=== PATIENT | female | born 1985 | race American Indian/Alaskan Native ===

== ENCOUNTER 2019-09-15 18:06 | Emergency (ER) | payer SELFPAY ==
--- NOTE | 2019-09-15 18:56 | Emergency Department Report ---
Chief Complaint: Nausea/Vomiting/Diarrhea Stated Complaint: DIZZY, VOMITTING - HPI History of Present Illness: 34 y.o. female with no PHMx presents with complaint of nausea and vomiting for the past three days. Patient states that she feels lightheaded. Patient has had no syncope, chest pain, or shortness of breath. patient has had no hematemesis or hematochezia. - Exam Vital Signs: Vital Signs 09/15/19 18:14 Temperature 99.5 F Pulse Rate 105 H Respiratory 18 Rate Blood Pressure 101/66 O2 Sat by Pulse 99 Oximetry Physical Exam: Patient appears dehydrated. Normal bowel sounds Non tender in all four quadrants on abdominal exam. MSE screening note: Focused history and physical exam performed. Due to findings the following was ordered: ED Disposition for MSE Condition: Stable
[2019-09-15] MEDS ORDERED: ONDANSETRON 4 MG ODT TAB PO ONE (18:57)
[2019-09-15 19:20] LABS: Basophils % (Auto) 0.7 % (0.0-1.8); Eosinophils % (Auto) 0.7 % (0.0-4.3); Hematocrit 37.9 % (30.3-42.9); Hemoglobin 12.8 gm/dl (10.1-14.3); Lymphocytes # (Auto) 0.8 K/mm3 (1.2-5.4); Lymphocytes % (Auto) 20.2 % (13.4-35.0); Mean Corpuscular HGB Conc 34 % (30-34); Mean Corpuscular Volume 90 fl (79-97); Monocytes # (Auto) 0.6 K/mm3 (0.0-0.8); Monocytes % (Auto) 14.8 % (0.0-7.3); Platelet Count 217 K/mm3 (140-440); Red Blood Count 4.22 M/mm3 (3.65-5.03); Red Cell Distribution Width 12.2 % (13.2-15.2)
[2019-09-15 19:42] LABS: Alanine Aminotransferase 7 units/L (7-56); Albumin 4.3 g/dL (3.9-5); BUN/Creatinine Ratio 10; Blood Urea Nitrogen 5 mg/dL (7-17); Calcium 9.7 mg/dL (8.4-10.2); Hemolysis Index 3
[2019-09-15] MEDS ORDERED: ONDANSETRON 4 MG/2 ML INJ ONE (20:54)
[2019-09-15] MEDS ORDERED: SODIUM CHLORIDE 0.9% 1000 ML 1,000 ML ONE (20:55)
[2019-09-15 20:56] LABS: Bacteria,Urine 1+ /HPF (Negative); Bilirubin,Urine NEG (Negative); Blood,Urine SM (Negative); Color,Urine Yellow (Yellow); HCG Qualitative,Urine Negative (Negative); Mucus,Urine 3+ /HPF; Urobilinogen,Urine < 2.0 mg/dL (<2.0)
[2019-09-15] MEDS: SODIUM CHLORIDE 0.9% 1000 ML 1,000 ML IV ONE ×2 (21:02→21:25)
[2019-09-15] MEDS: ONDANSETRON 4 MG/2 ML INJ IV ONE ×2 (21:03→21:25)
[2019-09-15] MEDS ORDERED: ONDANSETRON 4 MG/2 ML INJ IV ONE (21:23)
[2019-09-15] MEDS ORDERED: SODIUM CHLORIDE 0.9% 1000 ML 1,000 ML IV ONE ×2 (21:23→22:14)
--- NOTE | 2019-09-15 21:28 | Emergency Department Report ---
ED General Adult HPI - General Chief complaint: Nausea/Vomiting/Diarrhea Stated complaint: DIZZY, VOMITTING Time Seen by Provider: 09/15/19 20:23 Source: patient Mode of arrival: Ambulatory Limitations: No Limitations - History of Present Illness Initial comments: 34 y.o. female with no PHMx presents with complaint of nausea and vomiting for the past three days. Patient states that she feels lightheaded. Patient has had no syncope, chest pain, or shortness of breath. patient has had no hematemesis or hematochezia. Patient reports she is concerned for possible . Patient denies any past medical history currently takes no medications on a daily basis. Last menstrual period was sometime in July. Patient is 3 para 3 vaginal deliveries. Patient denies any fever. Denies any back pain. - Related Data Previous Rx's Medication Instructions Recorded Last Taken Type Nitrofurantoin [place]/M-Cryst 100 mg PO Q12HR 7 Days #14 capsule 09/15/19 Unknown Rx [Macrobid CAP] Ondansetron [Zofran Odt] 4 mg PO Q8HR PRN #12 tab.rapdis 09/15/19 Unknown Rx Allergies Allergy/AdvReac Type Severity Reaction Status Date / Time No Known Allergies Allergy Verified 09/15/19 20:55 ED Review of Systems ROS: Stated complaint: DIZZY, VOMITTING Other details as noted in HPI ED Past Medical Hx - Past Medical History Previous Medical History?: Yes Additional medical history: Vaginal delivery x 3 - Surgical History Past Surgical History?: No - Social History Smoking Status: Former Smoker Substance Use Type: Alcohol, Marijuana - Medications Home Medications: Home Medications Medication Instructions Recorded Confirmed Last Taken Type Nitrofurantoin [place]/M-Cryst 100 mg PO Q12HR 7 Days #14 capsule 09/15/19 Unknown Rx [Macrobid CAP] Ondansetron [Zofran Odt] 4 mg PO Q8HR PRN #12 tab.rapdis 09/15/19 Unknown Rx ED Physical Exam - General Limitations: No Limitations General appearance: alert, in no apparent distress - Head Head exam: Present: atraumatic, normocephalic - Eye Eye exam: Present: normal appearance, PERRL - ENT ENT exam: Present: mucous membranes moist - Respiratory Respiratory exam: Present: normal lung sounds bilaterally. Absent: respiratory distress - Cardiovascular Cardiovascular Exam: Present: normal rhythm, tachycardia. Absent: systolic murmur, diastolic murmur, rubs, gallop - GI/Abdominal GI/Abdominal exam: Present: soft, normal bowel sounds - Expanded Neurological Exam Expanded Patient oriented to: Present: person, place, time Cranial nerves: EOM's Intact: Normal, Gag Reflex: Normal, Tongue Deviation: N ormal, Nystagmus: Normal, Facial Sensation: Normal, Facial Palsy with Forehead Movement: Normal, Facial Palsy without Forehead Movement: Normal Cerebellar function: Finger to Nose: Normal, Heel to Morgan: Normal, Romberg: Normal Upper motor neuron: Mervin Neglect: Normal, Pronator Drift: Normal, Sensory Extinction: Normal Sensory exam: Upper Extremity Light Touch: Normal, Upper Extremity Pin Prick: Normal, Upper Extremity Temperature: Normal, UE 2 Point Discrimination: Normal, Lower Extremity Light Touch: Normal, Lower Extremity Pin Prick: Normal, Lower Extremity Temperature: Normal, LE 2 Point Discrimination: Normal Motor strength exam: RUE: 4, LUE: 4, RLE: 4, LLE: 4 Best Eye Response ([place]): (4) open spontaneously Best Motor Response ([place]): (6) obeys commands Best Verbal Response ([place]): (5) oriented [place] Total: 15 - Psychiatric Psychiatric exam: Present: normal affect, normal mood - Skin Skin exam: Present: warm, dry, intact, normal color. Absent: rash ED Course Vital Signs 09/15/19 18:14 Temperature 99.5 F Pulse Rate 105 H Respiratory 18 Rate Blood Pressure 101/66 O2 Sat by Pulse 99 Oximetry ED Medical Decision Making - Lab Data Result diagrams: 09/15/19 19:01 09/15/19 19:01 - Medical Decision Making 34 y.o. female with no PHMx presents with complaint of nausea and vomiting for the past three days. Patient states that she feels lightheaded. Patient has had no syncope, chest pain, or shortness of breath. patient has had no hematemesis or hematochezia. Patient reports she is concerned for possible . Patient denies any past medical history currently takes no medications on a daily basis. Last menstrual period was sometime in July. Patient is 3 para 3 vaginal deliveries. Patient denies any fever. Denies any back pain. UA is positive for urinary tract infection with 25 WBCs ketones are positive at 80. Patient appears to be dehydrated which she will get 1 L of fluids Zofran. Patient will be treated for urinary tract infection will be placed on Macrobid 100 mg p.o. twice daily for 10 days. Encouragement of increased fluid advance her diet as tolerated and to follow-up with an [facility] [facility]. Critical care attestation.: If time is entered above; I have spent that time in minutes in the direct care of this critically ill patient, excluding procedure time. ED Disposition Clinical Impression: UTI (urinary tract infection), Dehydration, Nausea & vomiting, Dizziness on standing Disposition: DC-01 TO HOME OR SELFCARE Is pt being admited?: No Does the pt Need Aspirin: No Condition: Stable Instructions: Urinary Tract Infection in Women (ED), Dehydration (ED), Acute Nausea and Vomiting (ED) Additional Instructions: Negative test. Increase your fluid intake advance her diet as tolerated follow-up with your primary care provider if your symptoms persist or gets worse. Prescriptions: Nitrofurantoin [place]/M-Cryst [Macrobid CAP] 100 mg PO Q12HR 7 Days #14 capsule Ondansetron [Zofran Odt] 4 mg PO Q8HR PRN #12 tab.rapdis PRN Reason: Nausea And Vomiting Referrals: PRIMARY CARE, [Primary Care Provider] - 3-5 Days [facility] [Provider Group] - 3-5 Days
[2019-09-15 23:37] VITALS: BP 102/60
== END 2019-09-15 23:55 | disposition home or self-care (01) ==
LOC: ED 18:06
DX: N39.0 Urinary tract infection, site not specified (principal); E86.0 Dehydration; F12.10 Cannabis abuse, uncomplicated; Z87.891 Personal history of nicotine dependence; Z79.899 Other long term (current) drug therapy
CPT/HCPCS: 36415; 80053; 81001; 81025; 83690; 85025; 87086; 96361; 96374; 99283; J2405; J7030; Q0162

== ENCOUNTER 2021-03-10 09:29 | Emergency (ER) | payer SELFPAY ==
[2021-03-10 12:53] VITALS: BP 107/70
[2021-03-10] MEDS ORDERED: ACETAMINOPHEN 325 MG TAB PO ONE (12:55)
--- NOTE | 2021-03-10 13:09 | Emergency Department Report ---
ED ENT HPI - General Chief complaint: Sore Throat Stated complaint: CHILLS/SORE THROAT Time Seen by Provider: 03/10/21 12:52 Source: patient Mode of arrival: Ambulatory Limitations: No Limitations - History of Present Illness Initial comments: Patient is a 35-year-old female presents emergency room complaints of a sore throat that began yesterday. She has associated chills and pain with swallowing. She states that she is able to tolerate p.o. intake but it is painful when she swallows. She denies any known sick contacts. She denies any recent travel. She denies any cough, shortness of breath, vomiting, diarrhea. No past medical history. No allergies to medications. - Related Data Previous Rx's Medication Instructions Recorded Last Taken Type Nitrofurantoin [place]/M-Cryst 100 mg PO Q12HR 7 Days #14 capsule 09/15/19 Unknown Rx [Macrobid CAP] Ondansetron [Zofran Odt] 4 mg PO Q8HR PRN #12 tab.rapdis 09/15/19 Unknown Rx Amoxicillin [Trimox] 500 mg PO BID 10 Days #40 capsule 03/10/21 Unknown Rx Allergies Allergy/AdvReac Type Severity Reaction Status Date / Time No Known Allergies Allergy Verified 09/15/19 20:55 ED Dental HPI - General Chief complaint: Sore Throat Stated complaint: CHILLS/SORE THROAT Time Seen by Provider: 03/10/21 12:52 Source: patient Mode of arrival: Ambulatory Limitations: No Limitations - Related Data Previous Rx's Medication Instructions Recorded Last Taken Type Nitrofurantoin [place]/M-Cryst 100 mg PO Q12HR 7 Days #14 capsule 09/15/19 Unknown Rx [Macrobid CAP] Ondansetron [Zofran Odt] 4 mg PO Q8HR PRN #12 tab.rapdis 09/15/19 Unknown Rx Amoxicillin [Trimox] 500 mg PO BID 10 Days #40 capsule 03/10/21 Unknown Rx Allergies Allergy/AdvReac Type Severity Reaction Status Date / Time No Known Allergies Allergy Verified 09/15/19 20:55 ED Review of Systems ROS: Stated complaint: CHILLS/SORE THROAT Other details as noted in HPI Comment: All other systems reviewed and negative ED Past Medical Hx - Past Medical History Previous Medical History?: Yes Additional medical history: Vaginal delivery x 3 - Surgical History Past Surgical History?: No - Social History Smoking Status: Former Smoker Substance Use Type: Alcohol, Marijuana - Medications Home Medications: Home Medications Medication Instructions Recorded Confirmed Last Taken Type Nitrofurantoin [place]/M-Cryst 100 mg PO Q12HR 7 Days #14 capsule 09/15/19 Unknown Rx [Macrobid CAP] Ondansetron [Zofran Odt] 4 mg PO Q8HR PRN #12 tab.rapdis 09/15/19 Unknown Rx Amoxicillin [Trimox] 500 mg PO BID 10 Days #40 capsule 03/10/21 Unknown Rx ED Physical Exam - General Limitations: No Limitations General appearance: alert, in no apparent distress - Head Head exam: Present: atraumatic, normocephalic - Eye Eye exam: Present: normal appearance - ENT ENT exam: Present: mucous membranes moist, TM's normal bilaterally, normal external ear exam, other (posterior oropharynx is erythematous with exudates present, no obvious tonsillar hypertrophy, uvula is midline, no uvular edema or deviation, no trismus, no tongue elevation, no muffled voice) - Respiratory Respiratory exam: Present: normal lung sounds bilaterally. Absent: respiratory distress, wheezes, rales, rhonchi, stridor, chest wall tenderness, accessory muscle use, decreased breath sounds, prolonged expiratory - Cardiovascular Cardiovascular Exam: Present: normal rhythm, tachycardia, normal heart sounds. Absent: systolic murmur, diastolic murmur, rubs, gallop - Neurological Exam Neurological exam: Present: alert, oriented X3 - Psychiatric Psychiatric exam: Present: normal affect, normal mood - Skin Skin exam: Present: warm, dry, intact ED Course Vital Signs 03/10/21 03/10/21 09:57 13:35 Temperature 99.2 F Pulse Rate 122 H 115 H Respiratory 16 16 Rate Blood Pressure 107/70 O2 Sat by Pulse 95 98 Oximetry ED Medical Decision Making - Lab Data Vital Signs 03/10/21 03/10/21 09:57 13:35 Temperature 99.2 F Pulse Rate 122 H 115 H Respiratory 16 16 Rate Blood Pressure 107/70 O2 Sat by Pulse 95 98 Oximetry - Medical Decision Making Patient is a 35-year-old female presents emergency room complaints of a sore throat that began yesterday. She has associated chills and pain with swallowing. She states that she is able to tolerate p.o. intake but it is painful when she swallows. She denies any known sick contacts. She denies any recent travel. She denies any cough, shortness of breath, vomiting, diarrhea. No past medical history. No allergies to medications. Vitals with tachycardia, patient given Tylenol, tachycardia could likely be related to patient's pharyngitis infection, no signs of murmur on exam, appears to have regular rhythm on auscultation. on exam: posterior oropharynx is erythematous with exudates present, no obvious tonsillar hypertrophy, uvula is midline, no uvular edema or deviation, no trismus, no tongue elevation, no muffled voice. Examinati on appears most consistent with pharyngitis, no signs of peritonsillar abscess at this time. Patient tolerating p.o. intake without any difficulty and was able to swallow Tylenol with no problems. Given prescription for medication. Advised patient Please take medication as prescribed. Increase your fluid intake. May alternate Tylenol or ibuprofen as needed for discomfort. May gargle with warm salt water. Use throat lozenges. Throw away your toothbrush. Do not drink after others or allow others to drink after you. Follow-up with your primary care doctor. Return to emergency room for any new or worsening symptoms. Critical care attestation.: If time is entered above; I have spent that time in minutes in the direct care of this critically ill patient, excluding procedure time. ED Disposition Clinical Impression: Pharyngitis Qualifiers: Pharyngitis/tonsillitis etiology: unspecified etiology Qualified Code(s): J02.9 - Acute pharyngitis, unspecified Disposition: TO HOME OR SELFCARE Is pt being admited?: No Does the pt Need Aspirin: No Condition: Stable Instructions: Pharyngitis, [id number] Additional Instructions: Please take medication as prescribed. Increase your fluid intake. May alternate Tylenol or ibuprofen as needed for discomfort. May gargle with warm salt water. Use throat lozenges. Throw away your toothbrush. Do not drink after others or allow others to drink after you. Follow-up with your primary care doctor. Return to emergency room for any new or worsening symptoms. Prescriptions: Amoxicillin [Trimox] 500 mg PO BID 10 Days #40 capsule Referrals: PRIMARY CARE, [Primary Care Provider] - 2-3 Days Time of Disposition: 13:14 Print Language: MOHAWK
== END 2021-03-10 13:34 | disposition home or self-care (01) ==
LOC: ED 09:29
DX: J02.9 Acute pharyngitis, unspecified (principal); F12.90 Cannabis use, unspecified, uncomplicated; Z79.899 Other long term (current) drug therapy; Z87.891 Personal history of nicotine dependence
CPT/HCPCS: 99282

== ENCOUNTER 2021-03-18 19:21 | Observation (INO) | payer OTHER, SELFPAY ==
[2021-03-18] MEDS ORDERED: ACETAMINOPHEN 325 MG/10.15 ML ORAL LIQD UNIT DOSE ONE (22:56)
[2021-03-18] MEDS ORDERED: IBUPROFEN ORAL LIQD 100 MG/5 ML ORAL.LIQD ONE (22:57)
[2021-03-18] MEDS ORDERED: IBUPROFEN ORAL LIQD 100 MG/5 ML ORAL.LIQD PO ONE (23:05)
[2021-03-18] MEDS ORDERED: ACETAMINOPHEN 325 MG/10.15 ML ORAL LIQD UNIT DOSE PO ONE (23:07)
[2021-03-18] MEDS ORDERED: SODIUM CHLORIDE 0.9% 1000 ML 1,000 ML IV ONE (23:28)
[2021-03-18] MEDS ORDERED: dexAMETHasone 20 MG/5 ML VIAL IV ONE (23:28)
--- NOTE | 2021-03-18 23:37 | Emergency Department Report ---
ED General Adult HPI - General Chief complaint: Fever Stated complaint: HEADACHE/BODY ACHES/FEVER Time Seen by Provider: 03/18/21 23:22 Source: patient Mode of arrival: Ambulatory Limitations: No Limitations - History of Present Illness Severity scale (0 -10): 4 - Related Data Previous Rx's Medication Instructions Recorded Last Taken Type Nitrofurantoin [place]/M-Cryst 100 mg PO Q12HR 7 Days #14 capsule 09/15/19 Unknown Rx [Macrobid CAP] Ondansetron [Zofran Odt] 4 mg PO Q8HR PRN #12 tab.rapdis 09/15/19 Unknown Rx Amoxicillin [Trimox] 500 mg PO BID 10 Days #40 capsule 03/10/21 Unknown Rx Allergies Allergy/AdvReac Type Severity Reaction Status Date / Time No Known Allergies Allergy Verified 09/15/19 20:55 ED Review of Systems ROS: Stated complaint: HEADACHE/BODY ACHES/FEVER Other details as noted in HPI ED Past Medical Hx - Past Medical History Previous Medical History?: No Additional medical history: Vaginal delivery x 3 - Surgical History Past Surgical History?: No - Social History Smoking Status: Current Every Day Smoker Substance Use Type: None - Medications Home Medications: Home Medications Medication Instructions Recorded Confirmed Last Taken Type Nitrofurantoin [place]/M-Cryst 100 mg PO Q12HR 7 Days #14 capsule 09/15/19 Unknown Rx [Macrobid CAP] Ondansetron [Zofran Odt] 4 mg PO Q8HR PRN #12 tab.rapdis 09/15/19 Unknown Rx Amoxicillin [Trimox] 500 mg PO BID 10 Days #40 capsule 03/10/21 Unknown Rx ED Physical Exam - General Limitations: No Limitations ED Course Vital Signs 03/18/21 22:53 Temperature 102.3 F H Pulse Rate 89 Respiratory 20 Rate Blood Pressure 113/68 O2 Sat by Pulse 95 Oximetry Critical care attestation.: If time is entered above; I have spent that time in minutes in the direct care of this critically ill patient, excluding procedure time. ED Disposition Condition: Stable
[2021-03-18] MEDS ORDERED: cefTRIAXone/NS 2 GM/100 ML 2 GM/100 ML BAG IV ONE (23:55)
[2021-03-18] MEDS ORDERED: AZITHROMYCIN/NS 500 MG/250 ML 500 MG/250 ML BAG IV ONE (23:55)
--- NOTE | 2021-03-18 23:56 | Emergency Department Report ---
ED Fever HPI - General Chief Complaint: Fever Stated Complaint: HEADACHE/BODY ACHES/FEVER PUI?: Yes Time Seen by Provider: 03/18/21 23:22 Source: patient Exam Limitations: no limitations - History of Present Illness Initial Comments: Patient is a 35-year-old female that presents emergency room with complaints of fever, cough, body aches, dizziness, near syncope. Patient states her symptoms started 2 days ago. Patient dates her symptoms are worsening. Patient states she is not helping vaccinated for COVID-19. Patient states that she has tried Tylenol and Motrin and she gets temporary relief. Patient states she smokes. Patient denies chest pain. Patient complains of shortness of breath. Patient states her shortness of breath better with rest and worse with exertion. Timing/Duration: yesterday Fever Severity/Quality: greater than 102 F Fever Therapy FUR LINER: Ibuprofen, Tylenol Associated Symptoms: cough, headache, muscle aches, other (Dizziness and near syncope) ED Review of Systems ROS: Stated complaint: HEADACHE/BODY ACHES/FEVER Other details as noted in HPI Constitutional: see HPI, chills, fever, malaise Eyes: denies: eye pain, eye discharge, vision change ENT: denies: ear pain, throat pain Respiratory: see HPI, cough. denies: shortness of breath, wheezing Cardiovascular: denies: chest pain, palpitations Endocrine: no symptoms reported Gastrointestinal: denies: abdominal pain, nausea, diarrhea Genitourinary: denies: urgency, dysuria, discharge Musculoskeletal: denies: back pain, joint swelling, arthralgia Skin: denies: rash, lesions Neurological: as per HPI, headache. denies: weakness, paresthesias Psychiatric: denies: anxiety, depression Hematological/Lymphatic: denies: easy bleeding, easy bruising ED Past Medical Hx - Past Medical History Previous Medical History?: Yes Additional medical history: Vaginal delivery x 3 - Surgical History Past Surgical History?: No - Family History Family history: no significant - Social History Smoking Status: Current Every Day Smoker Substance Use Type: None - Medications Home Medications: Home Medications Medication Instructions Recorded Confirmed Last Taken Type Nitrofurantoin [place]/M-Cryst 100 mg PO Q12HR 7 Days #14 capsule 09/15/19 Unknown Rx [Macrobid CAP] Ondansetron [Zofran Odt] 4 mg PO Q8HR PRN #12 tab.rapdis 09/15/19 Unknown Rx Amoxicillin [Trimox] 500 mg PO BID 10 Days #40 capsule 03/10/21 Unknown Rx ED Physical Exam - General Limitations: No Limitations General appearance: alert, in no apparent distress - Head Head exam: Present: atraumatic, normocephalic - Eye Eye exam: Present: normal appearance - ENT ENT exam: Present: mucous membranes moist - Neck Neck exam: Present: normal inspection - Respiratory Respiratory exam: Present: normal lung sounds bilaterally. Absent: respiratory distress - Cardiovascular Cardiovascular Exam: Present: regular rate, normal rhythm. Absent: systolic murmur, diastolic murmur, rubs, gallop - GI/Abdominal GI/Abdominal exam: Present: soft, normal bowel sounds - Extremities Exam Extremities exam: Present: normal inspection - Back Exam Back exam: Present: normal inspection - Neurological Exam Neurological exam: Present: alert, oriented X3 - Psychiatric Psychiatric exam: Present: normal affect, normal mood - Skin Skin exam: Present: warm, dry, intact, normal color. Absent: rash ED Course Vital Signs 03/18/21 03/18/21 03/18/21 22:53 23:06 23:15 Temperature 102.3 F H Pulse Rate 89 94 H 92 H Respiratory 20 11 L 26 H Rate Blood Pressure 113/68 122/66 O2 Sat by Pulse 95 95 Oximetry 03/18/21 03/18/21 03/19/21 23:31 23:45 00:01 Temperature Pulse Rate 84 89 87 Respiratory 26 H 27 H 24 Rate Blood Pressure 122/66 111/56 102/59 O2 Sat by Pulse 96 95 95 Oximetry 03/19/21 03/19/21 03/19/21 00:15 00:31 00:49 Temperature Pulse Rate 87 84 84 Respiratory 23 21 19 Rate Blood Pressure 104/59 114/63 107/68 O2 Sat by Pulse 97 97 98 Oximetry 03/19/21 01:01 Temperature Pulse Rate 92 H Respiratory 16 Rate Blood Pressure 109/39 O2 Sat by Pulse 99 Oximetry - Reevaluation(s) Reevaluation #1: Patient ambulated in her room and her oxygen saturation dropped to 88%. 03/18/21 23:55 ED Medical Decision Making - Lab Data Result diagrams: 03/18/21 23:38 03/18/21 23:51 - Radiology Data Radiology results: report reviewed, image reviewed interpreted by me: Chest x-ray: No pneumonia, no pneumothorax, no foreign body, no osseous findings, no acute findings CHEST 2 VIEWS INDICATION / CLINICAL INFORMATION: fever. COMPARISON: None available. FINDINGS: SUPPORT DEVICES: None. HEART / MEDIASTINUM: No significant abnormality. LUNGS / PLEURA: No significant pulmonary or pleural abnormality. No pneumothorax. ADDITIONAL FINDINGS: No significant additional findings. IMPRESSION: 1. No acute findings. CTA CHEST WITH IV CONTRAST INDICATION: Shortness of breath, Hypoxia and fever.. TECHNIQUE: Axial CT images were obtained through the chest after injection of 100 cc IV contrast. 3 plane MIP reconstructions were produced. All CT scans at this location are performed using CT dose reduction for ALARA by means of automated exposure control. COMPARISON: None available. FINDINGS: PULMONARY ARTERIES: No pulmonary emboli. THORACIC AORTA: No acute abnormality. HEART: Normal. CORONARY ARTERIES: No significant calcification. PLEURA: No pleural effusion. No pneumothorax. LYMPH NODES: No significant adenopathy. LUNGS: No acute air space or interstitial disease. ADDITIONAL FINDINGS: None. UPPER ABDOMEN: No acute findings. SKELETAL STRUCTURES: No significant osseous abnormality. IMPRESSION: 1. No CT evidence for pulmonary embolism. 2. No acute findings. - Medical Decision Making Patient is a 35-year-old female who presents emergency room with complaints of fever, cough, shortness of breath: Headache, fatigue, body aches. Patient is not vaccinated for COVID-19. Patient after initial evaluation was ambulated with a pulse ox and the patient desaturated. Patient's oxygen level dropped to 88%. Patient was placed on 2 L of oxygen. Patient was given Zithromax, Rocephin and Decadron. Patient was found to have a high fever and the patient was given Motrin and Tylenol. Patient had labs done. Patient's labs were essentially markable except for some elevated inflammatory markers and hyponatremia and hypokalemia. Patient given IV fluids in ER.. Patient had a Covid panel done. Patient had a chest x-ray was negative for acute finding. Personally reviewed the chest x-ray. Patient had a CTA of the chest since patient was hypoxic and short of breath with fever. Patient CTA was negative for acute findings. Patient clinical findings are concerning for respiratory failure and hypoxia and COVID-19. Patient admitted to the hospital service for further evaluation treatment. Critical care time documented due to the multiple reassessments, prolonged time at the bedside, interpretation of diagnostics and labs. - Differential Diagnosis Covid, PUI, fever, shortness of breath, dizziness, Critical Care Time: Yes Critical care time in (mins) excluding proc time.: 35 Critical care attestation.: If time is entered above; I have spent that time in minutes in the direct care of this critically ill patient, excluding procedure time. Critical Care Time: 35 minutes ED Disposition Clinical Impression: Cough, Person under investigation for COVID-19, SOB (shortness of breath) Fever Qualifiers: Fever type: unspecified Qualified Code(s): R50.9 - Fever, unspecified Respiratory failure Qualifiers: Chronicity: acute Respiratory failure complication: hypoxia Qualified Code(s): J96.01 - Acute respiratory failure with hypoxia Disposition: ADMITTED INPATIENT Is pt being admited?: Yes Does the pt Need Aspirin: No Condition: Critical Time of Disposition: 02:37
[2021-03-19 00:08] LABS: Basophils % (Auto) 0.5 % (0.0-1.8); Eosinophils % (Auto) 0.1 % (0.0-4.3); Hematocrit 32.2 % (30.3-42.9); Hemoglobin 11.1 gm/dl (10.1-14.3); Lymphocytes # (Auto) 0.7 K/mm3 (1.2-5.4); Lymphocytes % (Auto) 14.4 % (13.4-35.0); Mean Corpuscular HGB Conc 34 % (30-34); Mean Corpuscular Volume 90 fl (79-97); Monocytes # (Auto) 0.7 K/mm3 (0.0-0.8); Monocytes % (Auto) 13.9 % (0.0-7.3); Platelet Count 247 K/mm3 (140-440); Red Blood Count 3.56 M/mm3 (3.65-5.03); Red Cell Distribution Width 12.8 % (13.2-15.2)
[2021-03-19 00:28] LABS: Alanine Aminotransferase 21 units/L (7-56); Albumin 3.9 g/dL (3.9-5); Blood Urea Nitrogen 7 mg/dL (7-17); Calcium 8.8 mg/dL (8.4-10.2); Hemolysis Index 9
[2021-03-19 00:41] LABS: BUN/Creatinine Ratio 10
[2021-03-19 01:12] VITALS: BP 109/39
--- NOTE | 2021-03-19 01:17 | XRay Report ---
CHEST 2 VIEWS INDICATION / CLINICAL INFORMATION: fever. COMPARISON: None available. FINDINGS: SUPPORT DEVICES: None. HEART / MEDIASTINUM: No significant abnormality. LUNGS / PLEURA: No significant pulmonary or pleural abnormality. No pneumothorax. ADDITIONAL FINDINGS: No significant additional findings. IMPRESSION: 1. No acute findings. Signer Name: Favian Martinez MD Signed: 03/19/2021 1:12 AM Workstation Name: [place] Self Representation Document [id number]
[2021-03-19 01:20] LABS: C-Reactive Protein 1.4 mg/dL (0.00-1.30)
--- NOTE | 2021-03-19 02:24 | Cat Scan Report ---
CTA CHEST WITH IV CONTRAST INDICATION: Shortness of breath, Hypoxia and fever.. TECHNIQUE: Axial CT images were obtained through the chest after injection of 100 cc IV contrast. 3 plane MIP re constructions were produced. All CT scans at this location are performed using CT dose reduction for ALARA by means of automated exposure control. COMPARISON: None available. FINDINGS: PULMONARY ARTERIES: No pulmonary emboli. THORACIC AORTA: No acute abnormality. HEART: Normal. CORONARY ARTERIES: No significant calcification. PLEURA: No pleural effusion. No pneumothorax. LYMPH NODES: No significant adenopathy. LUNGS: No acute air space or interstitial disease. ADDITIONAL FINDINGS: None. UPPER ABDOMEN: No acute findings. SKELETAL STRUCTURES: No significant osseous abnormality. IMPRESSION: 1. No CT evidence for pulmonary embolism. 2. No acute findings. Signer Name: Favian Martinez MD Signed: 03/19/2021 2:19 AM Workstation Name: [id number]
[2021-03-19] MEDS ORDERED: MORPHINE 4 MG/1 ML INJ IV PRN (03:14)
[2021-03-19] MEDS ORDERED: MORPHINE 2 MG/1 ML INJ IV PRN (03:14)
[2021-03-19] MEDS ORDERED: ACETAMINOPHEN 325 MG TAB PO PRN (03:14)
[2021-03-19] MEDS ORDERED: ONDANSETRON 4 MG/2 ML INJ IV PRN (03:14)
[2021-03-19] MEDS ORDERED: SODIUM CHLORIDE 0.9% 1000 ML 1,000 ML IV SCH (03:15)
--- NOTE | 2021-03-19 03:30 | History and Physical Report ---
History of Present Illness Date of examination: 03/19/21 Date of admission: 03/19/2021 Chief complaint: Shortness of breath Fever Cough History of present illness: 35-year-old -Bangl[place] female without any significant past medical history presenting to the emergency room today complaining of a cough, fever generalized aches and pain and near syncope. Symptoms has been ongoing for the past 2 days. She denies any chest pain. She has been having shortness of breath which is worse on exertion but feels better upon resting. Patient denies any recent travel and denies any sick contacts. Denies any contact with anyone with COVID-19. She has not been fully vaccinated against COVID-19. Upon arrival in the emergency room today she was hypoxic with oxygen saturation at 88%. Work-up in the emergency room including chest x-ray and CT angiogram were unremarkable. Patient received IV antibiotics and IV steroid in the emergency room. She she is to be admitted and uled out for possible COVID-19. Past History Past Medical History: other (Vagina deliveries x3) Past Surgical History: No surgical history Social history: smoking (Current daily smoker) Family history: no significant family history Medications and Allergies Allergies Allergy/AdvReac Type Severity Reaction Status Date / Time No Known Allergies Allergy Verified 09/15/19 20:55 Home Medications Medication Instructions Recorded Confirmed Last Taken Type Nitrofurantoin [place]/M-Cryst 100 mg PO Q12HR 7 Days #14 capsule 09/15/19 Unknown Rx [Macrobid CAP] Ondansetron [Zofran Odt] 4 mg PO Q8HR PRN #12 tab.rapdis 09/15/19 Unknown Rx Amoxicillin [Trimox] 500 mg PO BID 10 Days #40 capsule 03/10/21 Unknown Rx Active Meds: Active Medications Acetaminophen (Acetaminophen 325 Mg Tab) 650 mg PO Q4H PRN PRN Reason: Pain MILD(1-3)/Fever >100.5/COSTA Enoxaparin Sodium (Enoxaparin 40 Mg/0.4 Ml Inj) 40 mg SUB-Q QDAY@2200 DIONICIO; Protocol Sodium Chloride (Nacl 0.9% 1000 Ml) 1,000 mls @ 125 mls/hr IV DIRECT DIONICIO Ceftriaxone Sodium (Rocephin/Ns 2 Gm/100 Ml) 2 gm in 100 mls @ 200 mls/hr IV Q24HR DIONICIO; Protocol Azithromycin (Zithromax/Ns) 500 mg in 250 mls @ 250 mls/hr IV Q24HR DIONICIO; Protocol Morphine Sulfate (Morphine 2 Mg/1 Ml Inj) 2 mg IV Q4H PRN PRN Reason: Pain, Moderate (4-6) Morphine Sulfate (Morphine 4 Mg/1 Ml Inj) 4 mg IV Q4H PRN PRN Reason: Pain , Severe (7-10) Ondansetron HCl (Ondansetron 4 Mg/2 Ml Inj) 4 mg IV Q8H PRN PRN Reason: Nausea And Vomiting Sodium Chloride (Sodium Chloride 0.9% 10 Ml Flush Syringe) 10 ml IV BID DIONICIO Sodium Chloride (Sodium Chloride 0.9% 10 Ml Flush Syringe) 10 ml IV PRN PRN PRN Reason: LINE FLUSH Review of Systems Constitutional: fever, chills, fatigue Ears, nose, mouth and throat: no nasal congestion, no sore throat Cardiovascular: no chest pain, no palpitations Respiratory: cough, shortness of breath, no wheezing Gastrointestinal: no abdominal pain, no nausea, no vomiting, no diarrhea Genitourinary Female: no pelvic pain, no flank pain, no dysuria, no hematuria Musculoskeletal: no neck pain, no low back pain Integumentary: no rash, no pruritis Neurological: other (Near syncope), no headaches, no confusion Psychiatric: no anxiety, no depression Endocrine: no polyphagia, no polydipsia, no polyuria, no nocturia Exam - Constitutional Vitals: Temp Pulse Resp BP Pulse Ox 102.3 F H 92 H 16 109/39 99 03/18/21 22:53 03/19/21 01:01 03/19/21 01:01 03/19/21 01:01 03/19/21 01:01 General appearance: Present: no acute distress, well-nourished - EENT Eyes: Present: PERRL, EOM intact. Absent: scleral icterus ENT: hearing intact, clear oral mucosa, dentition normal - Neck Neck: Present: supple, normal ROM - Respiratory Respiratory effort: normal Respiratory: bilateral: CTA - Cardiovascular Rhythm: regular Heart Sounds: Present: S1 & S2. Absent: gallop, systolic murmur, diastolic murmur, rub, click - Extremities Extremities: no ischemia, pulses intact, pulses symmetrical, No edema, normal temperature, normal color, Full ROM Peripheral Pulses: within normal limits - Abdominal General gastrointestinal: Present: soft, non-tender, non-distended, normal bowel sounds. Absent: mass - Integumentary Integumentary: Present: clear, warm, dry. Absent: rash - Musculoskeletal Musculoskeletal: strength equal bilaterally - Psychiatric Psychiatric: appropriate mood/affect, intact judgment & insight, memory intact, cooperative - Neurologic Neurologic: CNII-XII intact, no focal deficits, moves all extremities Results - Labs CBC & Chem 7: 03/18/21 23:38 03/18/21 23:51 Labs: Abnormal lab results 03/18/21 03/18/21 03/18/21 Range/Units 22:53 23:38 23:38 RBC 3.56 L (3.65-5.03) M/mm3 RDW 12.8 L (13.2-15.2) % [place] % (Auto) 13.9 H (0.0-7.3) % Lymph # (Auto) 0.7 L (1.2-5.4) K/mm3 Seg Neutrophils % 71.1 H (40.0-70.0) % Sodium 127 L (137-145) mmol/L Potassium 3.0 L (3.6-5.0) mmol/L Chloride 94.5 L (98-107) mmol/L Carbon Dioxide 20 L (22-30) mmol/L Glucose 160 H (65-100) mg/dL POC Glucose 117 H (70-105) mg/dL Lactate Dehydrogenase (91-180) units/L C-Reactive Protein (0.00-1.30) mg/dL 03/18/21 Range/Units 23:51 RBC (3.65-5.03) M/mm3 RDW (13.2-15.2) % [place] % (Auto) (0.0-7.3) % Lymph # (Auto) (1.2-5.4) K/mm3 Seg Neutrophils % (40.0-70.0) % Sodium (137-145) mmol/L Potassium (3.6-5.0) mmol/L Chloride (98-107) mmol/L Carbon Dioxide (22-30) mmol/L Glucose 158 H (65-100) mg/dL POC Glucose (70-105) mg/dL Lactate Dehydrogenase 184 H (91-180) units/L C-Reactive Protein 1.40 H (0.00-1.30) mg/dL Assessment and Plan - Patient Problems (1) Respiratory failure Current Visit: Yes Status: Acute Qualifiers: Chronicity: acute Respiratory failure complication: hypoxia Qualified Code(s): J96.01 - Acute respiratory failure with hypoxia Plan to address problem: Etiology unclear. Patient placed on isolation precautions for possible COVID-19. She has been placed on oxygen by nasal cannula to keep O2 saturation greater or equal to 94%. (2) Person under investigation for COVID-19 Current Visit: Yes Status: Acute Plan to address problem: Patient placed on isolation precautions. She has received IV steroid in the emergency room. Consult placed to infectious disease for evaluation recommendations. (3) DVT prophylaxis Current Visit: Yes Status: Acute Plan to address problem: Patient placed on subcutaneous Lovenox. (4) Full code status Current Visit: Yes Status: Acute Plan to address problem: Patient is full code.
[2021-03-19] MEDS ORDERED: AZITHROMYCIN/NS 500 MG/250 ML 500 MG/250 ML BAG IV SCH (10:00)
[2021-03-19] MEDS ORDERED: cefTRIAXone/NS 2 GM/100 ML 2 GM/100 ML BAG IV SCH (10:00)
[2021-03-19] MEDS ORDERED: ENOXAPARIN 40 MG/0.4 ML INJ SUB-Q SCH (22:00)
== END 2021-03-19 08:50 | disposition left against medical advice (07) ==
LOC: ED 19:21 → 3A 03-19 02:38
PROVIDERS: ADMIT Internal Medicine Geriatric Medicine; ATTEND Internal Medicine Geriatric Medicine
DX: J96.01 Acute respiratory failure with hypoxia (principal); Z20.822 Contact with and (suspected) exposure to COVID-19; R05 Cough; F17.210 Nicotine dependence, cigarettes, uncomplicated
CPT/HCPCS: 36415; 71046; 71275; 80053; 82140; 82728; 82947; 82962; 83615; 84145; 84703; 85025; 85379; 86140; 87040; 96365; 96375; 99291; G0378; J0456; J0696; J1100; J7030; Q9967

== ENCOUNTER 2021-03-21 10:17 | Emergency (ER) | payer SELFPAY ==
--- NOTE | 2021-03-21 16:29 | Event Note ---
ED Screening Note Date of service: 03/21/21 Time: 16:28 ED Screening Note: 35-year-old -Spanish female presents to the emergency room reporting that she is not getting any better. Patient was admitted on 03/18/2021 and left AMA as she had to attend to her kids. Was noted when she was evaluated on 18 March 2021 she was hypoxic. Patient had a chest x-ray that shows no acute abnormalities. Patient did have an elevated CRP. Patient is unvaccinated. Patient states she took a Covid test on Monday but does not know her results. This initial assessment/diagnostic orders/clinical plan/treatment(s) is/are subject to change based on patients health status, clinical progression and re- assessment by fellow clinical providers in the ED. Further treatment and workup at subsequent clinical providers discretion. Patient/guardian urged not to elope from the ED as their condition may be serious if not clinically assessed and managed. Initial orders include: CBC CMP urinalysis urine test chest x-ray has been ordered
[2021-03-21 17:20] LABS: Hemoglobin 12.6 gm/dl (10.1-14.3); Mean Corpuscular HGB Conc 34 % (30-34); Mean Corpuscular Volume 91 fl (79-97); Platelet Count 236 K/mm3 (140-440); Red Blood Count 4.05 M/mm3 (3.65-5.03); Red Cell Distribution Width 12.8 % (13.2-15.2)
[2021-03-21 17:37] LABS: Alanine Aminotransferase 16 units/L (7-56); Albumin 4.1 g/dL (3.9-5); Blood Urea Nitrogen 3 mg/dL (7-17); Calcium 9.4 mg/dL (8.4-10.2); Hemolysis Index 4
[2021-03-21 17:41] LABS: BUN/Creatinine Ratio 8
[2021-03-21 18:22] LABS: RBC Morphology Normal; Total Cells Counted 100
[2021-03-21 19:55] LABS: Bilirubin,Urine NEG (Negative); Blood,Urine NEG (Negative); Color,Urine Yellow (Yellow); Protein,Urine <15 mg/dL mg/dL (Negative); WBC,Urine < 1.0 /HPF (0.0-6.0)
[2021-03-21 20:25] LABS: HCG Qualitative,Urine Negative (Negative)
--- NOTE | 2021-03-21 20:58 | XRay Report ---
CHEST 2 VIEWS INDICATION / CLINICAL INFORMATION: dyspnea STUDY TIME: 2035 COMPARISON: 03/19/2021 FINDINGS: SUPPORT DEVICES: None. HEART / MEDIASTINUM: No significant abnormality. LUNGS / PLEURA: No significant pulmonary or pleural abnormality. No pneumothorax. ADDITIONAL FINDINGS: No significant additional findings. IMPRESSION: No significant acute abnormality Signer Name: Rod Rosenberg MD Signed: 03/21/2021 8:53 PM Workstation Name: [id number]
[2021-03-21] MEDS ORDERED: ONDANSETRON 4 MG ODT TAB PO ONE (22:06)
[2021-03-21] MEDS ORDERED: POTASSIUM CHLORIDE ER 20 MEQ TAB PO ONE (22:06)
--- NOTE | 2021-03-21 22:11 | Emergency Department Report ---
HPI - General Chief Complaint: Dyspnea/Respdistress Time Seen by Provider: 03/21/21 20:32 - HPI HPI: Room 43 The patient is a 35-year-old female present with a chief complaint of nausea and chest congestion. The patient was admitted to this hospital 2 days ago after he was found she desatted to 88% on room air with ambulation. The patient signed out AGAINST MEDICAL ADVICE the same evening because she had to attend to her children. The patient states yesterday she developed some nausea without vomiting and chest congestion and has had a decreased appetite. Patient denied ever having shortness of breath. Patient states she has an occasional cough that is nonproductive. Patient denies fever but states she has occasional chills. The patient had a CTA of the chest performed 03/19/2021 which was negative for PE or acute disease ED Past Medical Hx - Past Medical History Previous Medical History?: No Additional medical history: Vaginal delivery x 3 - Surgical History Past Surgical History?: No - Social History Smoking Status: Former Smoker (None since 2014) Substance Use Type: None (Denies illicit drug use), Alcohol (Occasional) - Medications Home Medications: Home Medications Medication Instructions Recorded Confirmed Last Taken Type Nitrofurantoin [place]/M-Cryst 100 mg PO Q12HR 7 Days #14 capsule 09/15/19 Unknown Rx [Macrobid CAP] Ondansetron [Zofran Odt] 4 mg PO Q8HR PRN #12 tab.rapdis 09/15/19 Unknown Rx Amoxicillin [Trimox] 500 mg PO BID 10 Days #40 capsule 03/10/21 Unknown Rx Ondansetron [Zofran ODT TAB] 8 mg PO Q8HR #20 tab.rapdis 03/21/21 Unknown Rx guaiFENesin [Chest Congestion 10 ml PO Q4H PRN #300 ml 03/21/21 Unknown Rx Relief] ED Review of Systems ROS: Stated complaint: CHILLS,NAUSEA,LIGHT HEADED Other details as noted in HPI Constitutional: chills. denies: fever Eyes: denies: eye pain ENT: denies: throat pain Respiratory: cough, other (Chest congestion). denies: shortness of breath Cardiovascular: denies: chest pain Endocrine: no symptoms reported Gastrointestinal: denies: abdominal pain Genitourinary: denies: dysuria Musculoskeletal: denies: back pain Neurological: headache Physical Exam - Physical Exam Vital Signs: Vital Signs 03/21/21 11:10 Temperature 98.6 F Pulse Rate 85 Respiratory 18 Rate Blood Pressure 98/56 O2 Sat by Pulse 98 Oximetry Physical Exam: GENERAL: The patient is well-developed well-nourished female lying on chair not appearing to be in acute distress. [] HEENT: Normocephalic. Atraumatic. Extraocular motions are intact. Patient has moist mucous membranes. NECK: Supple. Trachea midline CHEST/LUNGS: Clear to auscultation. There is no respiratory distress noted. HEART/CARDIOVASCULAR: Regular. There is no tachycardia. There is no gallop rub or murmur. ABDOMEN: Abdomen is soft, nontender. Patient has normal bowel sounds. There is no abdominal distention. SKIN: There is no rash. There is no edema. There is no diaphoresis. NEURO: The patient is awake, alert, and oriented. The patient is cooperative. The patient has no focal neurologic deficits. The patient has normal speech. G CS 15 MUSCULOSKELETAL: There is no evidence of acute injury. ED Course Vital Signs 03/21/21 11:10 Temperature 98.6 F Pulse Rate 85 Respiratory 18 Rate Blood Pressure 98/56 O2 Sat by Pulse 98 Oximetry ED Medical Decision Making - Lab Data Result diagrams: 03/21/21 17:00 03/21/21 17:00 Laboratory Tests 03/21/21 03/21/21 03/21/21 17:00 17:00 Unknown WBC 2.5 L RBC 4.05 Hgb 12.6 Hct 37.0 MCV 91 MCH 31 MCHC 34 RDW 12.8 L Plt Count 236 [place] % (Auto) Footwear Sales Leader Add Manual Diff Complete Total Counted 100 Seg Neutrophils % Footwear Sales Leader Seg Neuts % (Manual) 33.0 L Lymphocytes % (Manual) 48.0 H Monocytes % (Manual) 17.0 H Eosinophils % (Manual) 1.0 Basophils % (Manual) 1.0 Nucleated RBC % Not Reportable Seg Neutrophils # Man 0.8 L Band Neutrophils # 0.0 Lymphocytes # (Manual) 1.2 Abs React Lymphs (Man) 0.0 Monocytes # (Manual) 0.4 Eosinophils # (Manual) 0.0 Basophils # (Manual) 0.0 Metamyelocytes # 0.0 Myelocytes # 0.0 Promyelocytes # 0.0 Blast Cells # 0.0 WBC Morphology Not Reportable Hypersegmented Neuts Not Reportable Hyposegmented Neuts Not Reportable Hypogranular Neuts Not Reportable Smudge Cells Not Reportable Toxic Granulation Not Reportable Toxic Vacuolation Not Reportable Dohle Bodies Not Reportable Pelger-Huet Anomaly Not Reportable Isamar Rods Not Reportable Platelet Estimate Not Reportable Clumped Platelets Not Reportable Plt Clumps, EDTA Not Reportable Large Platelets Not Reportable Giant Platelets Not Reportable Platelet Satelliting Not Reportable Plt Morphology Comment Not Reportable RBC Morphology Normal Dimorphic RBCs Not Reportable Polychromasia Not Reportable Hypochromasia Not Reportable Poikilocytosis Not Reportable Anisocytosis Not Reportable Microcytosis Not Reportable Macrocytosis Not Reportable Spherocytes Not Reportable Pappenheimer Bodies Not Reportable Sickle Cells Not Reportable Target Cells Not Reportable Tear Drop Cells Not Reportable Ovalocytes Not Reportable Helmet Cells Not Reportable [place] Bodies Not Reportable Lucas Rings Not Reportable Manda Cells Not Reportable Bite Cells Not Reportable Crenated Cell Not Reportable Elliptocytes Not Reportable Acanthocytes (Spur) Not Reportable Rouleaux Not Reportable Hemoglobin C Crystals Not Reportable Schistocytes Not Reportable Malaria parasites Not Reportable Ervin Bodies Not Reportable Hem Pathologist Commnt No Sodium 138 D Potassium 3.1 L Chloride 98.3 Carbon Dioxide 29 D Anion Gap 14 BUN 3 L Creatinine 0.4 L Estimated GFR > 60 BUN/Creatinine Ratio 8 Glucose 73 Calcium 9.4 Total Bilirubin 0.20 AST 20 ALT 16 Alkaline Phosphatase 50 Total Protein 7.3 Albumin 4.1 Albumin/Globulin Ratio 1.3 Urine Color Yellow Urine Turbidity Clear Urine pH 7.0 Ur Specific [place] 1.009 Urine Protein <15 mg/dl Urine Glucose (UA) Neg Urine Ketones 20 Urine Blood Neg Urine Nitrite Neg Urine Bilirubin Neg Urine Urobilinogen 2.0 Ur Leukocyte Esterase Neg Urine WBC (Auto) < 1.0 Urine RBC (Auto) 1.0 U Epithel Cells (Auto) 2.0 Urine HCG, Qual Negative - Radiology Data Radiology results: report reviewed (Chest x-ray), image reviewed (Chest x-ray) interpreted by me: Chest x-ray-no focal infiltrates, no pneumothorax [facility] [address] [place] [address] XRay Report Signed Patient: JEFERSON GONZALEZ MR#: [id number] : 1985 Acct:[id number] Age/Sex: 35 / F ADM Date: 03/21/21 Loc: ED Attending Dr: Ordering Physician: NAMAN LEMUS Date of Service: 03/21/21 Procedure(s): XR chest routine 2V Accession Number(s): [id number] cc: NAMAN LEMUS Fluoro Time In Minutes: CHEST 2 VIEWS INDICATION / CLINICAL INFORMATION: dyspnea STUDY TIME: 2035 COMPARISON: 03/19/2021 FINDINGS: SUPPORT DEVICES: None. HEART / MEDIASTINUM: No significant abnormality. LUNGS / PLEURA: No significant pulmonary or pleural abnormality. No pneumothorax. ADDITIONAL FINDINGS: No significant additional findings. IMPRESSION: No significant acute abnormality Signer Name: Rod Rosenberg MD Signed: 03/21/2021 8:53 PM Workstation Name: [id number] Transcribed By: GJ Dictated By: Rod Rosenberg MD Electronically Authenticated By: Rod Rosenberg MD Signed Date/Time: 03/21/212052 DD/ 51 TD/TT: Print Cancel - Medical Decision Making Patient's 2-minute walking SPO2 98% on room air. Chest x-ray clear. Patient had negative CTA of the chest 2 days ago. Will treat patient symptomatically - Differential Diagnosis COVID-19, bronchitis, Critical care attestation.: If time is entered above; I have spent that time in minutes in the direct care of this critically ill patient, excluding procedure time. ED Disposition Clinical Impression: Chest congestion, Nausea Disposition: 01 HOME / SELF CARE / HOMELESS Is pt being admited?: No Does the pt Need Aspirin: No Condition: Stable Instructions: Nausea and Vomiting, Adult Additional Instructions: Return to the emergency department should you develop worsening symptoms, inability to tolerate food or liquids, high fever or any other concerns Prescriptions: guaiFENesin [Chest Congestion Relief] 10 ml PO Q4H PRN #300 ml PRN Reason: Congestion Ondansetron [Zofran ODT TAB] 8 mg PO Q8HR #20 tab.rapdis Referrals: PRIMARY CARE, [Primary Care Provider] - 3-5 Days [facility] [Provider Group] - 3-5 Days Time of Disposition: 22:38
[2021-03-21 23:35] VITALS: BP 103/63
== END 2021-03-21 23:35 | disposition home or self-care (01) ==
LOC: ED 10:17
DX: R09.89 Other specified symptoms and signs involving the circulatory and respiratory systems (principal); R11.0 Nausea; Z79.899 Other long term (current) drug therapy; Z87.891 Personal history of nicotine dependence
CPT/HCPCS: 36415; 71046; 80053; 81001; 81025; 85007; 85025; Q0162

== ENCOUNTER 2021-10-15 17:44 | Emergency (ER) | payer OTHER ==
[2021-10-15 18:26] VITALS: BP 105/66
[2021-10-15 21:17] LABS: Bilirubin,Urine NEG (Negative); Blood,Urine SM (Negative); Color,Urine Yellow (Yellow); Mucus,Urine 1+ /HPF; Protein,Urine <15 mg/dL mg/dL (Negative)
[2021-10-15 21:19] LABS: HCG Qualitative,Urine Negative (Negative)
--- NOTE | 2021-10-18 08:36 | Electrocardiograph Report ---
[facility] Test Date: 2021-10-15 Test Time: 19:57:14 Pat Name: JEFERSON GONZALEZ Department: Room: Gender: F Resident Services Manager: FABIANO : 1985 Requested By: ISAAC BRICENO Order Number: [id number] Reading MD: Ella Sims Measurements Intervals [place] Rate: 91 P: 69 LA: 133 QRS: 50 QRSD: 96 T: 33 QT: 347 QTc: 427 Interpretive Statements Sinus rhythm No previous ECG available for comparison Electronically Signed On 10-18-2021 8:36:02 EDT by Ella Sims
== END 2021-10-15 19:00 | disposition home or self-care (01) ==
LOC: ED 17:44
DX: R12 Heartburn (principal); N93.9 Abnormal uterine and vaginal bleeding, unspecified; Z53.21 Procedure and treatment not carried out due to patient leaving prior to being seen by health care provider
CPT/HCPCS: 81001; 81025; 93005